=== PATIENT | female | born 1955 | race Caucasian/White ===

== ENCOUNTER 2018-05-20 10:29 | Outpatient (CLI) | payer BC ==
--- NOTE | 2018-05-20 11:40 | RAD ---
RIGHT HIP TWO VIEWS: History: Right hip pain. FINDINGS: Joint space is well preserved. There are no signs of fracture. No evidence of any arthritic type leo ge. IMPRESSION: Unremarkable right hip. POS: [facility]
== END 2018-05-20 10:30 | disposition home or self-care (01) ==
LOC: BICRAD 10:29
PROVIDERS: ATTEND Family Medicine
DX: M25.551 Pain in right hip (principal)
CPT/HCPCS: 36415; 80053; 80061; 81001; 84439; 84443; 85025

== ENCOUNTER 2021-04-03 14:31 | Outpatient (CLI) | payer MEDICARE | END 2021-04-03 14:32 | disposition home or self-care (01) | LOC: BICULT 14:31 | PROVIDERS: ATTEND Family Medicine | DX: N95.0 Postmenopausal bleeding (principal); D25.9 Leiomyoma of uterus, unspecified; R93.89 Abnormal findings on diagnostic imaging of other specified body structures | CPT/HCPCS: 76856 ==